=== PATIENT | male | born 2000 | race Caucasian/White ===

== ENCOUNTER 2020-11-07 15:09 | Inpatient (IN) ==
[2020-11-07 16:10] LABS: ABS Eosinophils 0.1 10^3/ul (0-0.6); ABS Lymphocytes 1.5 10^3/ul (1.0-4.8); ABS Monocytes 0.8 10^3/ul (0-0.8); ABS Neutrophils 5.1 10^3/ul (1.5-7.7); Eosinophil % 1.4 %; Hematocrit 44 % (42-52); Hemoglobin 14.7 g/dL (14.0-18.0); Lymphocyte % 20.2 %; Mean Corpuscular HGB Conc 34 g/dL (31-36); Mean Corpuscular Hemoglobin 27 pg (27-31); Mean Corpuscular Volume 80 fL (80-94); Mean Platelet Volume 8.9 fL (7.4-10.4); Platelet Count 178 10^3/uL (150-450); Red Blood Count 5.48 10^6 /uL (4.18-5.48); Red Cell Distribution Width 14 % (10-15); White Blood Count 7.5 10^3/uL (3.5-10.8)
[2020-11-07 16:13] LABS: Urine Appearance Cloudy; Urine Bilirubin Negative (Negative); Urine Blood Negative (Negative); Urine Color Yellow; Urine Glucose Negative (Negative); Urine Ketones Trace (Negative); Urine Nitrite Negative (Negative); Urine Protein 1+(30 mg/dL) (Negative); Urine Specific Gravity 1.024 (1.010-1.030); Urine Urobilinogen Positive (Negative)
[2020-11-07 16:25] LABS: Urine Bacteria 1+ (Absent); Urine Red Blood Cell 3+(>10/hpf) (Absent); Urine Squamous Epithelial Cell Present (Absent); Urine White Blood Cell 3+(>20/hpf) (Absent)
[2020-11-07 16:29] LABS: ALT 22 U/L (7-52); AST 33 U/L (13-39); Albumin 4.7 g/dL (3.2-5.2); Albumin/Globulin Ratio 1.7 (1-3); Alkaline Phosphatase 50 U/L (34-104); Anion Gap 10 mmol/L (2-11); BUN/Creatinine Ratio 16.2 (8-20); Blood Urea Nitrogen 12 mg/dL (6-24); CO2 Carbon Dioxide 23 mmol/L (22-32); Calcium 9.8 mg/dL (8.6-10.3); Chloride 105 mmol/L (101-111); EGFR African American 161.6 (>60); EGFR Non-African American 133.5 (>60); Globulin 2.8 g/dL (2-4); Glucose 122 mg/dL (70-100); Potassium 3.7 mmol/L (3.5-5.0); Sodium 138 mmol/L (135-145); Total Protein 7.5 g/dL (6.4-8.9)
[2020-11-07 16:39] LABS: Acetaminophen < 15 mcg/mL; Alcohol, S < 10 mg/dL (<10); Salicylate < 2.50 mg/dL (<30)
[2020-11-07 17:19] LABS: Urine Benzodiazepine Screen None Detected (None Detect); Urine Cannabinoids Screen Presumptive Positive (None Detect); Urine Opiates Screen None Detected (None Detect)
[2020-11-07 17:51] LABS: TSH Ultra Thyroid Stim Horm 0.74 mcIU/mL (0.34-5.60)
[2020-11-07] MEDS ORDERED: Al Hydrox/Mg Hydrox/Simet LIQ 30 ML UDC PO PRN (21:04)
[2020-11-07] MEDS ORDERED: LORazepam PO 0-6 for WAM protocol PO SCH (22:00)
[2020-11-08 08:19] LABS: HDL Cholesterol 56.6 mg/dL
[2020-11-08] MEDS ORDERED: Nicotine PATCH 7 MG/24 HR PATCH TRANSDERM SCH (09:00)
[2020-11-08] MEDS: Vitamin THERAPEUTIC TAB PO SCH (09:28)
[2020-11-08 14:04] LABS: Chlamydia trachomatis NAA Positive (Negative); Neisseria gonorrhoeae (GC) NAA Negative (Negative)
[2020-11-08] MEDS ORDERED: AZITHROMYCIN 500 MG TAB PO ONE (15:30)
[2020-11-08] MEDS ORDERED: Lithium Carbonate ER 450mg TAB PO SCH (21:00)
[2020-11-09] MEDS: Vitamin THERAPEUTIC TAB PO SCH (08:26)
[2020-11-09] MEDS: Nicotine GUM 2MG FRUIT FLAVOR PO PRN ×4 (08:28→19:06)
[2020-11-10] MEDS: Nicotine GUM 2MG FRUIT FLAVOR PO PRN ×4 (01:44→21:57)
[2020-11-10] MEDS: Vitamin THERAPEUTIC TAB PO SCH (09:43)
[2020-11-11 08:30] VITALS: BP 141/76
[2020-11-11] MEDS: Vitamin THERAPEUTIC TAB PO SCH (08:34)
[2020-11-11] MEDS: Nicotine GUM 2MG FRUIT FLAVOR PO PRN ×2 (08:46→11:26)
== END 2020-11-11 14:00 | disposition home or self-care (01) | DRG 753 ==
LOC: ED 15:09 → BSU 21:00
PROVIDERS: ADMIT Psychiatry & Neurology Psychiatry; ATTEND Psychiatry & Neurology Psychiatry